=== PATIENT | female | born 1975 | race Caucasian/White ===

== ENCOUNTER 2021-01-04 09:14 | Emergency (ER) | payer SELFPAY ==
[2021-01-04] VITALS (11 sets, daily range): BP systolic 96–138; BP diastolic 59–89; PULSE 53–89; RESP 11–18; TEMP 36.2–36.8; O2SAT 87–100
--- NOTE | 2021-01-04 09:15 | RT.EKG_ITS ---
APPROVED REPORT Exam: Resting ECG Patient Location: E HR:58 bpm ECG Measurements Heart Rate 58 AXIS IL 170 P 33 QRSd 85 QRS -13 QT 482 T 51 QTc 472 Conclusion Sinus bradycardia...rate< 60 Inferior infarct, old...Q >35mS, II III aVF Anteroseptal infarct, age indeterminate...Q >35mS, T neg, V1-V2 sinus bradycardia at 58, normal axis, inferior and anterior Q waves, no WPW, QTC 482, no Brugada, no HOCM, no STEMI, nondiagnostic EKG
--- NOTE | 2021-01-04 09:37 | W.ED.GENAD ---
Discharge Plan Disposition Patient Disposition: HOME Condition: Stable Discharge Details Clinical Impression: Lightheadedness, Vertigo Primary Care Provider: Abimael Bernardo ED Provider: Farrah Cagle Home Meds and New Rx's Prescriptions: New meclizine 25 mg tablet 25 mg PO BID PRN (Reason: dizziness) Qty: 14 RF: 0 Continued multivitamin Tablet 1 tab PO DAILY RF: 0 cyclobenzaprine 10 mg Tablet 10 mg PO TID PRNRF: 0 meloxicam 15 mg Tablet 15 mg PO DAILY RF: 0 dextroamphetamine-amphetamine [Adderall] 10 mg Tablet 10 mg PO DAILY RF: 0 dextroamphetamine-amphetamine [Adderall] 10 mg Tablet 10 mg PO 1300 RF: 0 prazosin 5 mg Capsule 5 mg PO QHS RF: 0 cyanocobalamin (vitamin B-12) [Vitamin B-12] 500 mcg Tablet 500 mcg PO DAILY RF: 0 dextroamphetamine-amphetamine [Adderall XR] 20 mg Capsule,Extended Release 24hr 20 mg PO DAILY RF: 0 lidocaine [Lidoderm] 5 % Adhesive Patch,Medicated 1 patch TOPICAL DAILY RF: 0 dextroamphetamine-amphetamine [Adderall XR] 10 mg Capsule,Extended Release 24hr 10 mg PO 1300 RF: 0 hydroxychloroquine [Plaquenil] 200 mg Tablet 400 mg PO DAILY RF: 0 atenolol 50 mg Tablet 50 mg PO DAILY RF: 0 bupropion HCl [Wellbutrin XL] 300 mg Tablet Extended Release 24 Hr 300 mg PO QAM RF: 0 duloxetine [Cymbalta] 60 mg Capsule,Delayed Release(Dr/Ec) 90 mg PO DAILY RF: 0 Discharge Instructions Instructions: Vertigo (ED), Near Syncope (ED) Additional Instructions: Please return immediately to the emergency department if you develop any new or worsening symptoms, if your condition does not improve as expected, or if you become otherwise concerned. It is extremely important that you call soon as possible to make an appointment to be seen in follow-up for this visit by your primary care doctor. Stand Alone Forms: Work Release Referrals: Abimael Bernardo [Primary Care Provider] - Medical Decision Making Peter Mares is a 45 y/o woman who presents emergency department with lightheadedness and vertigo. On exam patient is well nontoxic-appearing. Benign neurologic exam without nystagmus or focal deficit. Patient does have some orthostatic drop in blood pressure. Concern for dehydration, metabolic/lyte derangement, medication effect, likely peripheral vertigo. Doubt acute coronary syndrome, doubt pulmonary embolism, doubt central vertigo. Plan for screening labs, fluids, EKG, chest x-ray. Exam/history at this time is not consistent with sepsis, acute aortic pathology, acute emergent intra-abdominal pathology. EKG and chest x-ray nondiagnostic. Labs nondiagnostic. Patient reevaluated after fluids and meclizine. Patient states that her lightheadedness and vertigo have improved but have not resolved as she continues to have symptoms with standing and with position changes. Upon further discussion with patient, she reports that she has strong family history of strokes. Plan for CT head, MRI/MRA for rule out central vertigo. Imaging without acute findings per radiology. Patient reports feeling improved. Patient has been able to walk to the bathroom times without issue. Plan for discharge home with outpatient follow-up. I had a lengthy discussion with Patient regarding return to emergency department precautions, home care, and importance of outpatient follow-up. Pt verbalizes understanding of the plan and is amenable. Patient discharged to home with clear plan for outpatient follow-up. All questions were answered. Disposition decision was made weighing the risks and benefits of hospitalization versus outpatient treatment, the risk for further decompensation, and the patient's wishes. Medical Records Medical records reviewed: Yes I reviewed the patient's medical records. Imaging Data Radiologic Study: Attestation: I personally reviewed and interpreted this imaging study as follows: Radiologist's impression: EXAM: XR PORTABLE CHEST AP CLINICAL HISTORY: near syncope. TECHNIQUE: 2D digital imaging was performed. COMPARISON: No exams were available for comparison FINDINGS: Heart size is normal. The mediastinum is not widened. Lungs are clear. No infiltrates nor obvious pleural effusions. IMPRESSION: No acute pulmonary findings on this single AP portable view of the chest. EXAM: CT HEAD WO CLINICAL HISTORY: vertigo. TECHNIQUE: Imaging Protocol: Axial computed tomography images with coronal and sagittal reformatted images were created and reviewed COMPARISON: No exams were available for comparison FINDINGS: There are no skull fractures. Focal densities in the visualized right maxillary sinus are noted which are probably post inflammatory retention cysts. No associated fluid level. The opposite-right maxillary sinus is clear as are the sphenoid and frontal sinuses and ethmoidal air cells. There is opacification of the most posterior mastoid air cell on the right side.. There is no fluid in the middle ear cavities. There is no evidence of intracranial hemorrhage, mass effect, or shift of midline structures. There are no extra-axial fluid collections. The ventricles are not enlarged or shifted and there is no blood within the ventricular system nor within the basal cisterns. IMPRESSION: No acute intracranial findings on this noninfused CT scan of the brain. Mucosal findings in the right maxillary sinus as described above. The remainder of the visualized paranasal sinuses are clear. EXAM: MR BRAIN WO CLINICAL HISTORY: vertigo TECHNIQUE: Multiplanar multisequence MRI of the brain was performed. COMPARISON: No exams were available for comparison FINDINGS: CEREBRAL PARENCHYMA: There is no evidence of intracranial hemorrhage, mass effect, or shift of midline structures. There are no extra-axial fluid collections. Ventricles are not enlarged or shifted. There is no significant focal signal abnormality in the cerebellar hemispheres nor within the dylan, midbrain, and thalami. There are few tiny punctate nonspecific foci of signal abnormality in the periventricular white matter. There is no significant focal signal abnormality evident on diffusion imaging to suggest acute ischemic event. IAC's: There are no masses in the cerebellopontine angles. There is no evidence of intra canalicular acoustic neuroma/schwannoma. PITUITARY GLAND: No mass nor parasellar abnormality. No obvious abnormality in the cavernous sinuses. FLOW VOIDS: The expected flow void are noted. No evidence of obvious aneurysm nor obvious vascular malformation. There is a posterior communicating artery noted on the right side of the [id number]. PARANASAL SINUSES: 2 retention cysts are noted in the right maxillary sinus. No associated fluid poles. Left maxillary sinus is clear. ORBITS: No obvious findings. IMPRESSION: No significant intracranial findings on this noninfused MRI scan of the brain. Two post inflammatory retention cysts are noted in the right maxillary sinus. No fluid levels therein. MRA of the head and neck did not reveal significant findings. EXAM: MR ANGIO BRAIN WO CLINICAL HISTORY: vertigo TECHNIQUE: Noninfused magnetic resonance angiography of the intracranial arteries was performed on 1.5 willis unit using [id number] sequence. COMPARISON: CT CT HEAD WO from 01/04/2021 FINDINGS: ANTERIOR CIRCULATION: Both internal carotid arteries are patent in the skull base-carotid canals as well as within the cavernous sinuses. The supraclinoid aspects of these arteries are also patent. Both middle cerebral arteries are demonstrated patent out to the sylvian fissure at branches. No intraluminal thrombus. No aneurysm seen in these vessels. Both A1 segments are patent as are the anterior cerebral arteries. There is no evidence of aneurysm at the level of the anterior communicating artery nor elsewhere in the [id number]-[id number]-[id number]. POSTERIOR CIRCULATION: The basilar artery is formed at the skull base by the dominant left vertebral artery and thinner distal aspect of the right vertebral artery. The basilar artery ascends in the midline with normal luminal diameter. Distally it gives off both right and left superior cerebellar arteries. Above this level the basilar artery terminates as a patent left posterior cerebral artery. The right posterior cerebral artery is primarily supplied by posterior communicating artery on the right side of the [id number]-bm-Ogtrhn. There is a smaller contribution from the tip of the basilar artery. There is no evidence of aneurysm at the basilar artery tip. IMPRESSION: 1. Patent intracerebral arteries. 2. No aneurysms evident EXAM: MRA (MAGNETIC RESONANCE ANGIOGRAPHY) OF THE NECK CLINICAL HISTORY: vertigo. TECHNIQUE: Multiplanar multisequence MRAI of the neck was performed. [id number] SEQUENCE PERFORMED FOR THIS NON INFUSED STUDY CONTRAST MATERIAL: IV Contrast: NONE COMPARISON: None. FINDINGS: ANTERIOR CIRCULATION: Both common carotid arteries appear patent. Mild plaque noted at the carotid bifurcations bilaterally. There does not appear to be a critical stenosis at this level nor in the proximal internal carotid arteries on either side. Internal carotid arteries are also patent in the upper neck bilaterally. POSTERIOR CIRCULATION: Both vertebral arteries originate in conventional fashion off of the subclavian arteries. Both exhibit normal luminal diameters in the foramen transverse area and both vertebral arteries contribute to the formation of the basilar artery at the skull base although the last centimeter of the right vertebral artery at this level is thinner. IMPRESSION: Patent carotid arteries in the neck Patent vertebral arteries in the neck. Lab Data Lab results reviewed: Yes I reviewed the patient's lab results. Labs: Laboratory Tests Range/Units 01/04/21 01/04/21 01/04/21 09:45 09:45 09:45 WBC (4.4-10.8) 10^3/uL 5.35 RBC (3.93-5.22) 10^6/uL 4.24 Hgb (11.2-15.7) g/dL 12.9 Hct (36.0-46.0) % 36.8 MCV (80-95) fL 86.8 MCH (27.0-33.0) pg 30.4 MCHC (32.0-36.0) % 35.1 RDW (11.7-14.6) % 11.9 Plt Count (130-400) 10^3/uL 227 MPV (8.0-11.0) fL 10.5 Immature Gran % 0.4 Neutrophils % 69.7 Lymphocytes % 16.4 Monocytes % 10.7 Eosinophils % 2.1 Basophils % 0.7 Nucleated RBC % % 0 Absolute Neutrophils (1.2-6.7) 10^3/uL 3.73 Absolute Lymphocytes (1.2-3.4) 10^3/uL 0.88 L Absolute Monocytes (0.1-0.8) 10^3/uL 0.57 Absolute Eosinophils (0.0-0.7) 10^3/uL 0.11 Absolute Basophils (0.0-0.2) 10^3/uL 0.04 D-Dimer (<500) ng/mlFEU 500 VBG Lactate (0.6-1.4) mmol/L Sodium (136-145) mmol/L 141 Potassium (3.5-5.1) mmol/L 3.7 Chloride (98-107) mmol/L 103 Carbon Dioxide (21.0-32.0) mmol/L 29.0 Anion Gap (3-11) mmol/L 9.0 BUN (7-18) mg/dL 20 H Creatinine (0.55-1.02) mg/dL 1.0 Estimated GFR/1.73 m2 (mL/min/1.73m2) 59.43 Glucose (74-106) mg/dL 93 Calcium (8.5-10.1) mg/dL 8.9 Magnesium (1.8-2.4) mg/dL 2.0 Total Bilirubin (0.2-1.0) mg/dL 0.3 AST (15-37) U/L 18 ALT (14-59) U/L 26 Alkaline Phosphatase (46-116) U/L 73 Troponin I (<0.06) ng/mL < 0.05 Total Protein (6.4-8.2) g/dL 7.6 Albumin (3.4-5.0) g/dL 3.9 Vitamin B12 (193-986) pg/mL 438 Urine Color (Yellow) Urine Clarity (Clear) Urine pH (5-8) Ur Specific [place] (1.005-1.025) Urine Protein (Negative) mg/dL Urine Ketones (Negative) mg/dL Urine Blood (Negative) Urine Nitrite (Negative) Urine Bilirubin (Negative) Urine Urobilinogen (Up TO 0.2) EU/dL Ur Leukocyte Esterase (Negative) Urine Glucose (Negative) mg/dL Range/Units 01/04/21 01/04/21 01/04/21 10:09 12:09 14:02 WBC (4.4-10.8) 10^3/uL RBC (3.93-5.22) 10^6/uL Hgb (11.2-15.7) g/dL Hct (36.0-46.0) % MCV (80-95) fL MCH (27.0-33.0) pg MCHC (32.0-36.0) % RDW (11.7-14.6) % Plt Count (130-400) 10^3/uL MPV (8.0-11.0) fL Immature Gran % Neutrophils % Lymphocytes % Monocytes % Eosinophils % Basophils % Nucleated RBC % % Absolute Neutrophils (1.2-6.7) 10^3/uL Absolute Lymphocytes (1.2-3.4) 10^3/uL Absolute Monocytes (0.1-0.8) 10^3/uL Absolute Eosinophils (0.0-0.7) 10^3/uL Absolute Basophils (0.0-0.2) 10^3/uL D-Dimer (<500) ng/mlFEU VBG Lactate (0.6-1.4) mmol/L 0.9 Sodium (136-145) mmol/L Potassium (3.5-5.1) mmol/L Chloride (98-107) mmol/L Carbon Dioxide (21.0-32.0) mmol/L Anion Gap (3-11) mmol/L BUN (7-18) mg/dL Creatinine (0.55-1.02) mg/dL Estimated GFR/1.73 m2 (mL/min/1.73m2) Glucose (74-106) mg/dL Calcium (8.5-10.1) mg/dL Magnesium (1.8-2.4) mg/dL Total Bilirubin (0.2-1.0) mg/dL AST (15-37) U/L ALT (14-59) U/L Alkaline Phosphatase (46-116) U/L Troponin I (<0.06) ng/mL < 0.05 Total Protein (6.4-8.2) g/dL Albumin (3.4-5.0) g/dL Vitamin B12 (193-986) pg/mL Urine Color (Yellow) Yellow Urine Clarity (Clear) Clear Urine pH (5-8) 7.0 Ur Specific [place] (1.005-1.025) 1.010 Urine Protein (Negative) mg/dL Negative Urine Ketones (Negative) mg/dL Negative Urine Blood (Negative) Negative Urine Nitrite (Negative) Negative Urine Bilirubin (Negative) Negative Urine Urobilinogen (Up TO 0.2) EU/dL 0.2 Ur Leukocyte Esterase (Negative) Negative Urine Glucose (Negative) mg/dL Negative ECG Data Attestation: I personally reviewed and interpreted this ECG (s) as follows: Interpretation: EKG shows sinus bradycardia at 58, normal axis, inferior and anterior Q waves, no WPW, QTC 482, no Brugada, no HOCM, no STEMI, nondiagnostic EKG HPI General Mode of arrival: ambulatory. Date/Time Provider Initiated Documentation: 01/04/21 09:15. Limitations to Documentation: no limitations. Information obtained by: patient, RN notes reviewed and old records reviewed. HPI Narrative: Elisha Mares is a 45-year-old woman with a history of hypertension, coronary artery disease, gastric sleeve surgery in 2017 presenting to the emergency department with lightheadedness. Patient reports that she woke up this morning as usual and was getting ready to go to work. Patient reports that while standing she began to feel lightheaded as if she would pass out, and sat down on the couch. Patient reports that she did not have loss of consciousness. Patient reports that she gradually began to feel better and drove herself to work, but she reports that upon arriving at work she again felt very lightheaded. Patient reports that her blood pressure at work was 90 systolic. Patient reports that while at work she also began to develop a spinning sensation, worse with movement. Patient reports that spinning sensation has continued in addition to feeling lightheaded. Spinning sensation is not present when at rest but worsens if she changes position. Patient reports that she developed mild headache while performing orthostatics in her exam room otherwise she denies any pain. Patient reports that she has been feeling well and in her usual state of health recently. She denies fevers, any pain other than headache as above, shortness of breath, cough, vomiting, diarrhea, numbness, weakness, rash, ear pain or hearing changes. Patient reports that she takes her blood pressure medications at night and there have been no recent changes in her medication regime. Has been taking all meds as prescribed. Has been eating and drinking without issue. 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 Patient reports that her normal blood pressure even while taking anti-hypertensives is typically 130-140/80-90. Patient reports last menstrual period 2015. Pt reports that she had rapid COVID test at work that was negative. Related Data Home Medications Medication Instructions Recorded Confirmed atenolol 50 mg PO DAILY 01/04/21 01/04/21 bupropion HCl [Wellbutrin XL] 300 mg PO QAM 01/04/21 01/04/21 cyanocobalamin (vitamin B-12) 500 mcg PO DAILY 01/04/21 01/04/21 [Vitamin B-12] cyclobenzaprine 10 mg PO TID PRN 01/04/21 01/04/21 dextroamphetamine-amphetamine 10 mg PO 1300 01/04/21 01/04/21 [Adderall XR] dextroamphetamine-amphetamine 20 mg PO DAILY 01/04/21 01/04/21 [Adderall XR] dextroamphetamine-amphetamine 10 mg PO 1300 01/04/21 01/04/21 [Adderall] dextroamphetamine-amphetamine 10 mg PO DAILY 01/04/21 01/04/21 [Adderall] duloxetine [Cymbalta] 90 mg PO DAILY 01/04/21 01/04/21 hydroxychloroquine [Plaquenil] 400 mg PO DAILY 01/04/21 01/04/21 lidocaine [Lidoderm] 1 patch TOPICAL DAILY 01/04/21 01/04/21 meclizine 25 mg PO BID PRN #14 tab 01/04/21 meloxicam 15 mg PO DAILY 01/04/21 01/04/21 multivitamin 1 tab PO DAILY 01/04/21 01/04/21 prazosin 5 mg PO QHS 01/04/21 01/04/21 Previous Rx's Medication Instructions Recorded meclizine 25 mg PO BID PRN #14 tab 01/04/21 Allergies Allergy/AdvReac Type Severity Reaction Status Date / Time Sulfa (Sulfonamide Allergy Anaphylaxis Unverified 01/04/21 10:12 Antibiotics) egg AdvReac Nausea Unverified 01/04/21 10:12 General Stated Complaint: Dizzy/Sync RD: 3 Review of Systems Narrative: Constitutional: denies fevers Eyes: denies eye pain ENT: denies ear pain, dental pain, sore throat, hearing changes Cardiovascular: denies chest pain, reports lightheadedness Respiratory: denies SOB, cough GI: denies abdominal pain, vomiting, diarrhea : denies flank pain MSK: denies back pain, neck pain, arthralgias, myalgias Skin: denies rash Neuro: denies headaches, numbness, weakness, reports vertigo [facility] Social History Smoking risk assessment performed?: No Do you feel safe at home: Yes Do you feel safe in your relationship?: Yes Exam Narrative Exam Narrative: Constitutional: well and [id number], pleasant, conversing normally HENT: head atraumatic/normocephalic/normal inspection, mucous membranes moist, bilateral TMs normal, left canal normal, right canal with mild erythema no lesion, edema, discharge Eyes: conjunctiva normal, sclera normal, pupils 3mm b/l ERRLA, extraocular movements intact without nystagmus Neck: no stridor, normal ROM, trachea midline Resp: normal work of breathing, speaking in full sentences Cardio: normal rate, normal rhythm Back: normal inspection, no rash Skin: warm, dry, normal color, no rash Neuro: alert, not altered, grossly non-focal, cranial nerves II through XII intact, motor 5 out of 5 throughout, normal tone Ext: no edema Psych: normal mood, normal affect, normal behavior Course Vital Signs Vital signs: Vital Signs Temperature 36.2 C L 01/04/21 09:22 Pulse 67 01/04/21 09:22 Respiratory Rate 16 01/04/21 09:22 Blood Pressure 106/75 01/04/21 09:22 Pulse Oximetry 99 01/04/21 09:22 Temperature 36.2 C L 01/04/21 09:22 Temperature Source Skin 01/04/21 09:22 Pulse 67 01/04/21 09:22 Respiratory Rate 16 01/04/21 09:22 Blood Pressure 106/75 01/04/21 09:22 Blood Pressure Position Sitting 01/04/21 09:22 Pulse Oximetry 99 01/04/21 09:22 Oxygen Delivery Method Room Air 01/04/21 09:22 Oxygen Flow Rate 0 01/04/21 09:22 Pain Level 0 01/04/21 09:22
--- NOTE | 2021-01-04 10:00 | DI.RAD_ITS ---
EXAM: XR PORTABLE CHEST AP CLINICAL HISTORY: near syncope. TECHNIQUE: 2D digital imaging was performed. COMPARISON: No exams were available for comparison FINDINGS: Heart size is normal. The mediastinum is not widened. Lungs are clear. No infiltrates nor obvious pleural effusions. IMPRESSION: No acute pulmonary findings on this single AP portable view of the chest. DATA REPOSITORY: RADIATION DOSE DELIVERED: All CT scans at this facility use at least one of these dose optimization techniques: automated exposure control; mA and/or kV adjustment per patient size (includes targeted e xams where dose is matched to clinical indication); or iterative reconstruction.
[2021-01-04] MEDS: Normal Saline 1,000 ML 1000 ML IV (10:13)
[2021-01-04] MEDS: Meclizine 25 MG TAB PO (10:13)
[2021-01-04 10:14] LABS: Lactate 0.9 mmol/L (0.6-1.4)
[2021-01-04 10:17] LABS: Abs Immature Grans 0.02 10^3/uL (0.0-0.06); Absolute Basophil Count 0.04 10^3/uL (0.0-0.2); Absolute Eosinophil Count 0.11 10^3/uL (0.0-0.7); Absolute Lymphocyte Count 0.88 10^3/uL (1.2-3.4); Absolute Monocyte Count 0.57 10^3/uL (0.1-0.8); Absolute Neutrophil Count 3.73 10^3/uL (1.2-6.7); Basophils % 0.7; Eosinophils % 2.1; HCT 36.8 % (36.0-46.0); HGB 12.9 g/dL (11.2-15.7); Immature Grans % 0.4; Lymphocytes % 16.4; MCH 30.4 pg (27.0-33.0); MCHC 35.1 % (32.0-36.0); MCV 86.8 fL (80-95); MPV 10.5 fL (8.0-11.0); Monocytes % 10.7; Neutrophils % 69.7; Nucleated RBC 0 %; Platelet Count 227 10^3/uL (130-400); RBC 4.24 10^6/uL (3.93-5.22); RDW 11.9 % (11.7-14.6); RDW-SD 37.6 fL; WBC 5.35 10^3/uL (4.4-10.8)
[2021-01-04 10:56] LABS: ALT 26 U/L (14-59); AST 18 U/L (15-37); Albumin 3.9 g/dL (3.4-5.0); Alkaline Phosphatase 73 U/L (46-116); BUN 20 mg/dL (7-18); Bilirubin, Total 0.3 mg/dL (0.2-1.0); Calcium 8.9 mg/dL (8.5-10.1); Chloride 103 mmol/L (98-107); Estimated GFR 59.43 (mL/min/1.73m2); Glucose 93 mg/dL (74-106); Potassium 3.7 mmol/L (3.5-5.1); Sodium 141 mmol/L (136-145); Total Protein 7.6 g/dL (6.4-8.2); Troponin I < 0.05 ng/mL (<0.06); Vitamin B12 438 pg/mL (193-986)
[2021-01-04 11:33] LABS: D-Dimer 500 ng/mlFEU (<500)
[2021-01-04 12:17] LABS: Bilirubin Negative (Negative); Blood Negative (Negative); Clarity Clear (Clear); Glucose Negative (Negative); Ketones Negative (Negative); Leukocyte Esterase Negative (Negative); Nitrite Negative (Negative); Urobilinogen 0.2 EU/dL (Up TO 0.2)
--- NOTE | 2021-01-04 12:30 | DI.MRI_ITS ---
EXAM: MR ANGIO BRAIN WO CLINICAL HISTORY: vertigo TECHNIQUE: Noninfused magnetic resonance angiography of the intracranial arteries was performed on 1 .5 willis unit using [id number] sequence. COMPARISON: CT CT HEAD WO from 01/04/2021 FINDINGS: ANTERIOR CIRCULATION: Both internal carotid arteries are patent in the skull base-carotid canals as well as within the cave rnous sinuses. The supraclinoid aspects of these arteries are also patent. Both middle cerebral art eries are demonstrated patent out to the sylvian fissure at branches. No intraluminal thrombus. No aneurysm seen in these vessels. Both A1 segments are patent as are the anterior cerebral arteries. There is no evidence of aneurysm at the level of the anterior communicating artery nor elsewhere in the bubmfo-co-Qypqyo. POSTERIOR CIRCULATION: The basilar artery is formed at the skull base by the dominant left vertebral artery and thinner dist al aspect of the right vertebral artery. The basilar artery ascends in the midline with normal lumin al diameter. Distally it gives off both right and left superior cerebellar arteries. Above this lev el the basilar artery terminates as a patent left posterior cerebral artery. The right posterior cer ebral artery is primarily supplied by posterior communicating artery on the right side of the [place]- of-[place]. There is a smaller contribution from the tip of the basilar artery. There is no evidence of aneurysm at the basilar artery tip. IMPRESSION: 1. Patent intracerebral arteries. 2. No aneurysms evident DATA REPOSITORY:
--- NOTE | 2021-01-04 12:30 | DI.MRI_ITS ---
EXAM: MRA (MAGNETIC RESONANCE ANGIOGRAPHY) OF THE NECK CLINICAL HISTORY: vertigo. TECHNIQUE: Multiplanar multisequence MRAI of the neck was performed. [id number] SEQUENCE PERFOR MED FOR THIS NON INFUSED STUDY CONTRAST MATERIAL: IV Contrast: NONE COMPARISON: None. FINDINGS: ANTERIOR CIRCULATION: Both common carotid arteries appear patent. Mild plaque noted at the carotid b ifurcations bilaterally. There does not appear to be a critical stenosis at this level nor in the pr oximal internal carotid arteries on either side. Internal carotid arteries are also patent in the up per neck bilaterally. POSTERIOR CIRCULATION: Both vertebral arteries originate in conventional fashion off of the subclavia n arteries. Both exhibit normal luminal diameters in the foramen transverse area and both vertebral arteries contribute to the formation of the basilar artery at the skull base although the last centim eter of the right vertebral artery at this level is thinner. IMPRESSION: Patent carotid arteries in the neck Patent vertebral arteries in the neck. DATA REPOSITORY:
--- NOTE | 2021-01-04 12:30 | DI.MRI_ITS ---
EXAM: MR BRAIN WO CLINICAL HISTORY: vertigo TECHNIQUE: Multiplanar multisequence MRI of the brain was performed. COMPARISON: No exams were available for comparison FINDINGS: CEREBRAL PARENCHYMA: There is no evidence of intracranial hemorrhage, mass effect, or shift of midline structures. There are no extra-axial fluid collections. Ventricles are not enlarged or shifted. There is no significant focal signal abnormality in the cerebellar hemispheres nor within the dylan, m idbrain, and thalami. There are few tiny punctate nonspecific foci of signal abnormality in the periventricular white matte r. There is no significant focal signal abnormality evident on diffusion imaging to suggest acute ischem ic event. IAC's: There are no masses in the cerebellopontine angles. There is no evidence of intra canalicular acoustic neuroma/schwannoma. PITUITARY GLAND: No mass nor parasellar abnormality. No obvious abnormality in the cavernous sinuses. FLOW VOIDS: The expected flow void are noted. No evidence of obvious aneurysm nor obvious vascular ma lformation. There is a posterior communicating artery noted on the right side of the [id number]-[id number] . PARANASAL SINUSES: 2 retention cysts are noted in the right maxillary sinus. No associated fluid carolin es. Left maxillary sinus is clear. ORBITS: No obvious findings. IMPRESSION: No significant intracranial findings on this noninfused MRI scan of the brain. Two post inflammatory retention cysts are noted in the right maxillary sinus. No fluid levels therei n. MRA of the head and neck did not reveal significant findings. DATA REPOSITORY:
--- NOTE | 2021-01-04 13:02 | DI.CT_ITS ---
EXAM: CT HEAD WO CLINICAL HISTORY: vertigo. TECHNIQUE: Imaging Protocol: Axial computed tomography images with coronal and sagittal reformatted images were created and reviewed COMPARISON: No exams were available for comparison FINDINGS: There are no skull fractures. Focal densities in the visualized right maxillary sinus are noted whi ch are probably post inflammatory retention cysts. No associated fluid level. The opposite-right ma xillary sinus is clear as are the sphenoid and frontal sinuses and ethmoidal air cells. There is opa cification of the most posterior mastoid air cell on the right side.. There is no fluid in the middl e ear cavities. There is no evidence of intracranial hemorrhage, mass effect, or shift of midline structures. There are no extra-axial fluid collections. The ventricles are not enlarged or shifted and there is no blo od within the ventricular system nor within the basal cisterns. IMPRESSION: No acute intracranial findings on this noninfused CT scan of the brain. Mucosal findings in the right maxillary sinus as described above. The remainder of the visualized pa ranasal sinuses are clear. RADIATION DOSE DELIVERED: 736.42mGy.cm Total DLP DATA REPOSITORY: All CT scans at this facility are submitted to the National Radiology Data Registry (NRDR) Dose Index Registry (DIR) with the [employer] ([employer]). RADIATION OPTIMIZATION: All CT scans at this facility use at least one of these dose optimization te chniques: automated exposure control; mA and/or kV adjustment per patient size (includes targeted exa ms where dose is matched to clinical indication); or iterative reconstruction.
[2021-01-04 14:27] LABS: Troponin I < 0.05 ng/mL (<0.06)
== END 2021-01-04 15:20 | disposition home or self-care (01) ==
PROVIDERS: Emergency Provider Student in an Organized Health Care Education/Training Program; PCP Internal Medicine
DX: R42 Dizziness and giddiness (principal); I95.1 Orthostatic hypotension
CPT/HCPCS: 70544; 70547; 80053; 93005; 96360; 99285; 70450; 70551; 71045; 81003; 82607; 83605; 83735; 84484; 85025; 85379; 93010; 99284